=== PATIENT | male | born 1940 | race Asian ===

== ENCOUNTER 2020-08-08 16:43 | Emergency (ER) | payer OTHER ==
[~2020-08-08] VITALS: Ht 175.3 cm; Wt 61.2 kg
[2020-08-08 17:10] VITALS: BP_SYST 150
[2020-08-08 20:23] LABS: HEMATOCRIT 30.8 % (36-54); HEMOGLOBIN 10.5 g/dL (14.0-18.0); MEAN CORPUSCULAR HEMOGLOBIN 37 pg (27-31); MEAN CORPUSCULAR HGB CONC 34 % (32-36); MEAN CORPUSCULAR VOLUME 109 fL (79.0-98.0); RED BLOOD CELL COUNT(AUTO) 2.83 MIL/uL (4.2-6.2); RED CELL DISTRIBUTION WIDTH 13.1 % (9.0-15.0); WHITE BLOOD COUNT (AUTO) 7.2 K/uL (4.8-10.8)
[2020-08-08 20:33] LABS: PLATELET COUNT (AUTO) 231 K/uL (130-430)
[2020-08-08 21:34] LABS: BAND % (MANUAL) 1 % (0-6); BASOPHILS % (MANUAL) 0 % (0-2); EOSINOPHILS % (MANUAL) 2 % (0-7); LYMPHOCYTES % (MANUAL) 26 % (20-46); MONOCYTES % (MANUAL) 4 % (0-11)
[2020-08-08 21:35] VITALS: BP_SYST 162
== END 2020-08-08 21:35 | disposition home or self-care (01) ==
LOC: SED 16:43
DX: D64.9 Anemia, unspecified (principal)
CPT/HCPCS: 36415; 85007; 85027; 99283